=== PATIENT | female | born 1950 | race Caucasian/White ===

== ENCOUNTER 2018-03-08 17:04 | Emergency (ER) | payer MEDICARE, OTHER ==
[2018-03-08 17:59] LABS: BASO % 0.5 % (0.0-2.0); EOS # 0.2 K/uL (0.0-0.7); EOS % 2.7 % (0.0-4.0); HEMOGLOBIN 14.8 g/dL (12.0-16.0); LYMPH % 30.3 % (20.0-40.0); MEAN CELL VOLUME 93.8 fl (81.0-99.0); MEAN CORPUSCULAR HEMOGLOBIN 32.9 pg (27.0-31.0); MEAN CORPUSCULAR HGB CONC 35.1 g/dL (33.0-37.0); MEAN PLATELET VOLUME 7.7 fl (7.2-11.7); MONO # 0.4 K/uL (0.0-0.8); MONO % 6.5 % (0.0-10.0); NEUT # 3.9 K/uL (1.8-7.0); RBC 4.5 Mil/uL (3.80-5.20); RED CELL DISTRIBUTION WIDTH 13.3 % (11.5-14.5); WHITE BLOOD COUNT 6.6 K/uL (4.8-10.8)
--- NOTE | 2018-03-08 18:02 | RAD ---
Date of service: 03/08/2018 HISTORY: possible admission COMPARISON: Chest radiograph dated 10/04/2008. FINDINGS: LUNGS: No active pulmonary disease. PLEURA: No significant pleural effusion identified, no pneumothorax apparent. CARDIOVASCULAR: Atherosclerotic aortic calcifications. Cardiomediastinal silhouette within normal limits. OSSEOUS STRUCTURES: Degenerative changes. VISUALIZED UPPER ABDOMEN: Normal. OTHER FINDINGS: None. IMPRESSION: No active disease.
[2018-03-08 18:04] LABS: PROTHROMBIN TIME 11.2 Seconds (9.8-13.1)
[2018-03-08 18:07] LABS: PARTIAL THROMBOPLASTIN TIME 38.6 Seconds (25.6-37.1)
[2018-03-08 18:08] VITALS: O2SAT 99
[2018-03-08 18:13] LABS: ALB/GLOB RATIO 1.3 (1.0-2.1); ALBUMIN 4.7 g/dL (3.5-5.0); ALT/SGPT 62 U/L (9-52); AST/SGOT 75 U/L (14-36); BLOOD UREA NITROGEN 21 mg/dl (7-17); CALCIUM 10.8 mg/dL (8.4-10.2); GFR NON-AFRICAN AMERICAN > 60
--- NOTE | 2018-03-08 18:14 | ED PDOC ---
HPI: Chest Pain Time Seen by Provider: 03/08/18 17:17 Chief Complaint (Nursing): Chest Pain Chief Complaint (Provider): Chest Pain History Per: Patient History/Exam Limitations: no limitations Onset/Duration Of Symptoms: Days (x1) Additional Complaint(s): 67 y/o female presents to the ED for evaluation of worsening chest pain, onset one day ago. Patient states she started noticing pain last night that improved and came back today associated with shortness of breath. Patient reports she feeling she she is unable to catch her breath and that pain is non-radiating. Denies nausea, vomiting, dizziness, abdominal pain, calf swelling and calf pain. In addition, patient reports of having 5 Stents placed in 2010 and a history of Anxiety and Depression. Patient states she has not been taking her medications because she has run out and been unable to see doctor for refills. Patient is unclear if this feels like an anxiety attack or previous chest pain she had before getting stents. PMD: Savanah Zacarias Past Medical History Reviewed: Historical Data, Nursing Documentation, Vital Signs Vital Signs: Last Vital Signs Temp 98.4 F 03/08/18 21:15 Pulse 86 03/08/18 22:21 Resp 18 03/08/18 21:15 BP 103/51 L 03/08/18 21:15 Pulse Ox 99 03/08/18 23:02 - Medical History PMH: Anxiety, Depression, Hypercholesterolemia - Surgical History Surgical History: Coronary Stent (x5 in 2010) - Family History Family History: States: Unknown Family Hx - Allergies Allergies/Adverse Reactions: Allergies Allergy/AdvReac Type Severity Reaction Status Date / Time No Known Allergies Allergy Verified 03/08/18 17:10 Review of Systems ROS Statement: Except As Marked, All Systems Reviewed And Found Negative Cardiovascular: Positive for: Chest Pain Gastrointestinal: Negative for: Nausea, Vomiting, Abdominal Pain Musculoskeletal: Negative for: Leg Pain (calf pain or swelling) Physical Exam - Reviewed Nursing Documentation Reviewed: Yes Vital Signs Reviewed: Yes - Physical Exam Appears: Positive for: No Acute Distress (in no respiratory distress), Uncomfortable Head Exam: Positive for: ATRAUMATIC, NORMOCEPHALIC Skin: Positive for: Normal Color, Warm, Dry Eye Exam: Positive for: Normal appearance, EOMI, PERRL Neck: Positive for: Normal, Painless ROM Cardiovascular/Chest: Positive for: Tachycardia (on monitor) Respiratory: Positive for: Normal Breath Sounds. Negative for: Respiratory Distress Gastrointestinal/Abdominal: Positive for: Normal Exam, Soft. Negative for: Tenderness Extremity: Positive for: Normal ROM. Negative for: Deformity Neurologic/Psych: Positive for: Alert, Oriented - Laboratory Results Result Diagrams: 03/08/18 17:50 03/08/18 17:50 - ECG ECG Rhythm: Positive for: Sinus Tachycardia O2 Sat by Pulse Oximetry: 99 (RA) Pulse Ox Interpretation: Normal Medical Decision Making Medical Decision Making: Time: 180 A/P: 67 y/o female presenting with an anxiety attack vs. cardiac ideology -- Will send labs, EKG and give xanax -- Reassess patient -- Urinalysis -- Xanax 0.5 mg PO -- CXR Portable -- Prothrombin Time -- PTT -- CBC with Differentials -- Troponin I -- CMP -- BNP -- EKG -- VBG CXR RESULTS FINDINGS: LUNGS: No active pulmonary disease. PLEURA: No significant pleural effusion identified, no pneumothorax apparent. CARDIOVASCULAR: Atherosclerotic aortic calcifications. Cardiomediastinal silhouette within normal limits. OSSEOUS STRUCTURES: Degenerative changes. VISUALIZED UPPER ABDOMEN: Normal. OTHER FINDINGS: None. IMPRESSION: No active disease. Pt with normal labs and two sets of negative troponins. Pt to be discharged home and will follow up with primary medical doctor and primary school teacher. Return parameters discussed with the patient. Scribe Attestation: Documented by Kristie Crocker acting as a scribe for Natalee Correa MD. Provider Scribe Attestation: All medical record entries made by the Scribe were at my direction and personally dictated by me. I have reviewed the chart and agree that the record accurately reflects my personal performance of the history, physical exam, medical decision making, and the department course for this patient. I have also personally directed, reviewed, and agree with the discharge instructions and disposition. Disposition - Clinical Impression Clinical Impression: Chest pain - Disposition Disposition: Routine/Home Disposition Time: 21:00 Condition: IMPROVED Additional Instructions: Follow up with primary medical doctor and primary school teacher. Return to the emergency department if symptoms worsen or if new symptoms develop. Continue to take all home medications as prescribed by primary doctor. Instructions: Chest Pain (DC), Heart Disease in Women (DC) Forms: [facility] (Urdu) Print Language: GUYANESE
[2018-03-08 18:21] LABS: B-TYPE NATRIURETIC PEPTIDE 23.9 pg/ml (0-900)
[2018-03-08 18:40] LABS: SQUAMOUS EPITHIAL 1 /hpf (0-5); URINE BACTERIA RARE (<OCC); URINE BILIRUBIN NEGATIVE (NEGATIVE); URINE BLOOD NEGATIVE (NEGATIVE); URINE CLARITY SLIGHTY-CLOUDY (Clear); URINE COLOR YELLOW (YELLOW); URINE GLUCOSE (UA) NEG (Normal); URINE LEUKOCYTE ESTERASE TRACE Leu/uL (Negative); URINE PROTEIN 30 mg/dL (NEGATIVE)
[2018-03-08 19:59] LABS: ABG ALLEN TEST YES; ARTERIAL BLOOD GAS HCO3 24.7 mmol/L (21-28); ARTERIAL BLOOD GAS O2 SAT 98.8 % (95-98); ARTERIAL BLOOD GAS PCO2 28 mm/Hg (35-45); ARTERIAL BLOOD GAS PO2 83 mm/Hg (80-100); ARTERIAL BLOOD GAS TCO2 22.7 mmol/L (22-28)
[2018-03-08] MEDS ORDERED: Sodium Chloride 0.9% 1,000 ML IV STA (20:14)
[2018-03-08 20:46] VITALS: RESP 18
[2018-03-08 21:18] VITALS: BP 103/51; TEMP 98.4
[2018-03-08 22:21] VITALS: PULSE 86
[2018-03-09 08:13] LABS: VENOUS BLOOD GAS PCO2 30 mmHg (40-60); VENOUS BLOOD GAS PO2 16 mm/Hg (30-55); VENOUS BLOOD PH 7.51 (7.32-7.43)
--- NOTE | 2018-03-09 10:32 | CARD ---
APPROVED REPORT Date of service: 03/08/2018 <Conclusion> Sinus tachycardia Possible Left atrial enlargement Borderline ECG
== END 2018-03-08 23:12 | disposition home or self-care (01) ==
LOC: H.ER 17:04
DX: R07.89 Other chest pain (principal)
CPT/HCPCS: 36600; 71045; 80053; 81003; 82803; 83880; 84484; 85025; 85610; 85730; 93005; 96360; 99285; J7030